=== PATIENT | female | born 1980 | race African-American/Black ===

== ENCOUNTER 2022-07-30 15:50 | Emergency (ER) | payer MEDICAID ==
[~2022-07-30] VITALS: Ht 167.6 cm; Wt 105.0 kg
[2022-07-30 16:04] VITALS: BP 129/85
[2022-07-30 19:29] LABS: CLARITY URINE CLOUDY (CLEAR); COLOR URINE YELLOW (YELLOW); KETONES URINE TRACE (NEGATIVE); LEUKOCYTE ESTERASE URINE TRACE (NEGATIVE); NITRITE URINE NEGATIVE (NEGATIVE); OCCULT BLOOD URINE NEGATIVE (NEGATIVE); PROTEIN URINE TRACE (NEGATIVE); SPECIFIC GRAVITY URINE 1.033 (1.005-1.030)
[2022-07-30] MEDS ORDERED: FLUT9.9S16 BOTHNSTRLS (20:33)
[2022-07-30] MEDS ORDERED: [UNRECOGNIZED DRUG - CODE] ORI (20:33)
[2022-07-30] MEDS ORDERED: METR-167 MT (20:33)
== END 2022-07-30 21:10 | disposition home or self-care (01) ==
LOC: ER 17:21
DX: J06.9 Acute upper respiratory infection, unspecified (principal); N89.8 Other specified noninflammatory disorders of vagina; J45.909 Unspecified asthma, uncomplicated
CPT/HCPCS: 71045; 81003; 81025; 99284